=== PATIENT | male | born 1970 | race Caucasian/White ===

== ENCOUNTER 2018-01-04 07:19 | Inpatient (IN) | payer OTHER ==
[2018-01-04] MEDS ORDERED: Sodium Chloride 0.9% 1,000 ML IV ONE (07:27)
[2018-01-04 07:49] LABS: URINE SOURCE CLEAN C
[2018-01-04 07:49] LABS: % BASOPHILS 1.1 % (0.0-2.0); % EOSINOPHILS 2.7 % (0.0-5.0); % LYMPHOCYTES 32.7 % (20.0-50.0); % MONOCYTES 9.6 % (2.0-10.0); % NEUTROPHILS 53.9 % (40.0-80.0); BASOPHILE ABSOLUTE 0.1 Th/cumm (0-0.2); EOSINOPHILE ABSOLUTE 0.2 Th/cmm (0.1-0.4); HEMATOCRIT 47.7 % (41.0-60); HEMOGLOBIN 16.1 gm/dL (12-16); MEAN CORPUSCULAR HGB CONC 33.7 pg (28.0-36.0); MEAN PLATELET VOLUME 7.6 fl; MONOCYTE ABSOLUTE 0.6 Th/cmm (0.3-1.0); NEUTROPHILE ABSOLUTE 3.2 Th/cmm (1.8-8.0); PLATELET COUNT 267 Th/cmm (150-400); RED BLOOD COUNT 5.36 Mil/cmm (4.30-5.70); RED CELL DISTRIBUTION WIDTH 11.6 % (11.5-20.0); WHITE BLOOD COUNT 6.1 Th/cmm (4.8-10.8)
[2018-01-04 07:54] LABS: URINE BILIRUBIN NEGATIVE (NEGATIVE); URINE BLOOD LARGE (NEGATIVE); URINE GLUCOSE (UA) 100 mg/dL (NEGATIVE); URINE KETONE TRACE mg/dL (NEGATIVE); URINE LEUKOCYTE ESTERASE TRACE (NEGATIVE); URINE MICROSCOPIC INDICATED? YES; URINE NITRATE POSITIVE (NEGATIVE); URINE PH 6.5 (4.6 - 8.0); URINE PROTEIN >=300 mg/dL (NEGATIVE)
[2018-01-04 07:56] LABS: INR 0.93 (0.5-1.4); PROTHROMBIN TIME (TEST) 9.7 SECONDS (9.5-11.5)
--- NOTE | 2018-01-04 08:03 | Diagnostic Imaging Report ---
CT abdomen and pelvis without intravenous contrast Indication: Flank pain, hematuria Comparison: None, Technique: Axial images were obtained from the lung bases to the bilateral proximal femurs without IV contrast. Coronal reconstructions were made. total DLP: 928, CTDI15.2 FINDINGS: Hypoventilatory and atelectatic changes of the lung bases are noted. Assessment of the solid organs is limited due to lack of IV contrast. Subcentimeter low-density liver lesions are seen, too small to characterize, but suggestive of cysts. No focal splenic lesions. No focal pancreatic lesions. 3.8 cm left renal cyst is noted. There is a lobulated margin of the right kidney which is probably related to scarring. There is mild right hydronephrosis. Mild bilateral perinephric inflammatory changes are noted. There is a 3 to 4 mm stone of the distal right ureter. The urinary bladder is collapsed limiting its evaluation. Moderate to large fat-containing right inguinal hernia and moderate fat-containing left inguinal hernia is noted. No evidence of free fluid. No free air. Degenerative changes of the spine are noted. IMPRESSION: 3 to 4 mm stone of the right distal ureter causing mild right hydroureter and right hydronephrosis with mild surrounding inflammatory changes. Please correlate with clinical findings. Slight lobulation the right renal borders probably related to scarring. No discrete mass is identified ,however, exam was limited due to lack of IV contrast. A short-term follow-up CT with IV contrast or ultrasound is recommended for further assessment. Moderate to large fat-containing right and moderate size fat-containing left inguinal hernia.
[2018-01-04 08:06] LABS: ALB/GLOB RATIO 1.6 (1.0-1.8); ALBUMIN 4.7 gm/dL (4.2-5.5); ALKALINE PHOSPHATASE 38 U/L (34-104); AMYLASE SERUM 43 U/L (29-103); ANION GAP 14.5 (7.0-16.0); BILIRUBIN,TOTAL 0.8 mg/dL (0.3-1.0); BUN - UREA NITROGEN 19 mg/dL (7-25); CALCIUM SERUM 9.5 mg/dL (8.6-10.3); CARBON DIOXIDE 24.1 mEq/L (21.0-31.0); CHLORIDE 104 mEq/L (98-107); CHOLESTEROL 214 mg/dL (<200); CREATININE KINASE 129 U/L (30-223); GFR AFRICAN-AMERICAN > 60.0 ml/min (>90); GFR NON AFRICAN-AMERICAN > 60.0 ml/min; GLUCOSE 114 mg/dL (70-105); HDL -HIGH DENSITY LIPOPROTEIN 47 mg/dL (23-92); LIPASE 28 U/L (11-82); POTASSIUM SERUM 3.6 mEq/L (3.5-5.1); SGOT 17 U/L (13-39); SGPT/ALT 25 U/L (7-52); SODIUM SERUM 139 mEq/L (136-145); TOTAL PROTEIN,SERUM 7.6 gm/dL (6.0-8.3); TRIGLYCERIDES 127 mg/dL (<150)
[2018-01-04 08:23] LABS: URINE CLARITY HAZY (CLEAR); URINE COLOR BROWN
[2018-01-04 08:24] LABS: URINE BACTERIA FEW /hpf (NONE SEEN); URINE EPITHELIAL CELLS OCCASIONAL /lpf (FEW); URINE RBC 50-100 /hpf (0-5)
[2018-01-04] MEDS ORDERED: cefTRIAXone 1 GM in Sodium Chloride 0.9% 50 ML IV ONE (08:54)
--- NOTE | 2018-01-04 09:04 | ED Physician Chart ---
ED Chief Complaint/HPI - Patient Information Date Seen:: 01/04/18 Time Seen:: 07:30 Chief Complaint:: Flank Pain History of Present Illness:: onset x 6 hours of right flank pain, dysuria, and hematuria; pt denies H/As, neck pain, C/P, SOB, Abd. pain, A/N/V/D/C, fever, chills, or GI bleeding Allergies:: Allergies Allergy/AdvReac Type Severity Reaction Status Date / Time No Known Allergies Allergy Verified 01/04/18 07:28 Vitals:: Vital Signs - 8 hr 01/04/18 01/04/18 07:28 08:00 Temp 97.9 F 98 F HR 78 70 RR 23 18 BP 153/95 153/95 O2 Sat % 100 95 Historian:: Patient Review:: Nurse's Note Reviewed ED Review of Systems - Review of Systems General/Constitutional: No fever, No chills, No weight loss, No weakness, No diaphoresis, No edema, No loss of appetite Skin: No skin lesions, No rash, No bruising Head: No headache, No light-headedness Eyes: No loss of vision, No pain, No diplopia ENT: No earache, No nasal drainage, No sore throat, No tinnitus Neck: No neck pain, No swelling, No thyromegaly, No stiffness, No mass noted Cardio Vascular: No chest pain, No palpitations, No PND, No orthopnea, No edema Pulmonary: No SOB, No cough, No sputum, No wheezing GI: No nausea, No vomiting, No diarrhea, Pain, No melena, No hematochezia, No constipation, No hematemesis G/U: Dysuria, No frequency, Hematuria, No nacturia Musculoskeletal: No bone or joint pain, No back pain, No muscle pain Endocrine: No polyuria, No polydipsia Psychiatric: No prior psych history, No depression, No anxiety, No suicidal ideation, No homicidal ideation, No auditory hallucination, No visual hallucination Hematopoietic: No bruising, No lymphadenopathy Allergic/Immuno: No urticaria, No angioedema Neurological: No syncope, No focal symptoms, No weakness, No paresthesia, No headache, No seizure, No dizziness, No confusion, No vertigo ED Past Medical History - Past Medical History Obtainable: Yes Past Medical History: No significant medical hx Family History: None Social History: Non Smoker, No Alcohol, No Drug Use, Surgical History: None Psychiatricy History: None Medication: Reviewed Family Medical History - Family Member Mother History Unknown: Yes ED Physical Exam - Physical Examination General/Constitutional: Awake, Well-developed, well-nourished, Alert, No distress, GCS 15, Non-toxic appearing, Ambulatory Head: Atraumatic Eyes: Lids, conjuctiva normal, PERRL, EOMI Skin: Nl inspection, No rash, No skin lesions, No ecchymosis, Well hydrated, No lymphadenopathy ENMT: External ears, nose nl, TM canals nl, Nasal exam nl, Lips, teeth, gums nl , Oropharynx nl, Tonsils nl Neck: Nontender, Full ROM w/o pain, No JVD, No nuchal rigidity, No bruit, No mass, No stridor Respiratory: Nl effort/Exclusion, Clear to Auscultation, No Wheeze/Rhonchi/Rales Cardio Vascular: RRR, No murmur, gallop, rubs, NL S1 S2, Carotid/Femoral/Distal pulses equal bilaterally GI: No tenderness/rebounding/guarding, No organomegaly, No hernia, Normal BS's, Nondistended, No mass/bruits, No McBurney tenderness Other comments:: + Right CVAT Extremities: No tenderness or effusion, Full ROM, normal strength in all extremities, No edema, Normal digits & nails Neuro/Psych: Alert/oriented, DTR's symmetric, Normal sensory exam, Normal motor strength, Judgement/insight normal, Mood normal, Normal gait, No focal deficits Misc: Normal back, No paraspinal tenderness ED Labs/Radiology/EKG Results - Lab Results Results: Laboratory Tests 01/04/18 01/04/18 01/04/18 07:25 07:40 07:40 WBC 6.1 RBC 5.36 Hgb 16.1 Hct 47.7 MCV 89.0 MCH 30.0 MCHC Differential 33.7 RDW 11.6 Plt Count 267 MPV 7.6 Neutrophils % 53.9 Lymphocytes % 32.7 Monocytes % 9.6 Eosinophils % 2.7 Basophils % 1.1 PT 9.7 INR 0.93 Sodium Potassium Chloride Carbon Dioxide Anion Gap BUN Creatinine Est GFR ( Amer) Est GFR (Non-Af Amer) BUN/Creatinine Ratio Glucose Calcium Total Bilirubin AST ALT Alkaline Phosphatase Creatine Kinase Troponin I B-Natriuretic Peptide Total Protein Albumin Globulin Albumin/Globulin Ratio Triglycerides Cholesterol LDL Cholesterol Direct HDL Cholesterol Amylase Lipase Urine Source CLEAN C Urine Color BROWN Urine Clarity HAZY Urine pH 6.5 Ur Specific [place] >= 1.030 Urine Protein >=300 Urine Glucose (UA) 100 H Urine Ketones TRACE Urine Blood LARGE H Urine Nitrate POSITIVE H Urine Bilirubin NEGATIVE Urine Urobilinogen 2.0 Ur Leukocyte Esterase TRACE H Urine RBC 50-100 H Urine WBC 2-5 Ur Epithelial Cells OCCASIONAL Urine Bacteria FEW Ur Oval Fat Bodies 01/04/18 01/04/18 01/04/18 07:40 07:40 07:40 WBC RBC Hgb Hct MCV MCH MCHC Differential RDW Plt Count MPV Neutrophils % Lymphocytes % Monocytes % Eosinophils % Basophils % PT INR Sodium 139 Potassium 3.6 Chloride 104 Carbon Dioxide 24.1 Anion Gap 14.5 BUN 19 Creatinine 1.0 Est GFR ( Amer) > 60.0 Est GFR (Non-Af Amer) > 60.0 BUN/Creatinine Ratio 19.0 Glucose 114 H Calcium 9.5 Total Bilirubin 0.8 AST 17 ALT 25 Alkaline Phosphatase 38 Creatine Kinase 129 Troponin I 0.02 B-Natriuretic Peptide 18.5 Total Protein 7.6 Albumin 4.7 Globulin 2.9 Albumin/Globulin Ratio 1.6 Triglycerides 127 Cholesterol 214 H LDL Cholesterol Direct 137 HDL Cholesterol 47 Amylase 43 Lipase 28 Urine Source Urine Color Urine Clarity Urine pH Ur Specific [place] Urine Protein Urine Glucose (UA) Urine Ketones Urine Blood Urine Nitrate Urine Bilirubin Urine Urobilinogen Ur Leukocyte Esterase Urine RBC Urine WBC Ur Epithelial Cells Urine Bacteria Ur Oval Fat Bodies Comments:: Reviewed - Radiology Results Comments:: + Right Distal Ureter Calculus - EKG Interpretations EKG Time:: 07:31 Rate & Rhythm: 70; NSR Comments:: RVH; non-specific st-t changes ED Septic Shock - . Is Septic Shock (SBP<90, OR Lactate>4 mmol\L) present?: No - <6hrs of presentation: Vital Signs: Vital Signs - 8 hr 01/04/18 01/04/18 07:28 08:00 Temp 97.9 F 98 F HR 78 70 RR 23 18 BP 153/95 153/95 O2 Sat % 100 95 ED Reassessment (Disposition) - Reassessment Reassessment Condition:: Improved - Diagnosis Diagnosis:: Hematuria; UTI; Flank Pain; Back Pain; Ureterolithiasis - Aftercare/Follow up Instructions Aftercare/Follow-Up Instructions:: Counseled pt regarding lab results/diagnosis & need follow up, Counseled pt & family regarding lab results/diagnosis & need follow up - Patient Disposition Discharge/Transfer:: Acute Care w/in this hosp Accepting Physician:: Dr. Pavon Time Called:: 844 Time Responded:: 08:45 Admitted to:: Med/Surg Spoke to:: Dr. Pavon Admitting Medical Physician:: Dr. Pavon Condition at Disposition:: Stable, Improved
[2018-01-04] MEDS ORDERED: Morphine Sulfate 2 mg/mL 1mL Syr IV STA (09:11)
[2018-01-04] MEDS ORDERED: 0.45% NS w/20 mEq KCl 1,000 ML IV ONE (09:23)
[2018-01-04] MEDS ORDERED: Morphine Sulfate 2 mg/mL 1mL Syr ONE (09:23)
[2018-01-04] MEDS ORDERED: HYDROmorphone 2 mg/mL 1mL Vial IVP PRN (09:37)
--- NOTE | 2018-01-04 09:41 | Diagnostic Imaging Report ---
Portable chest x-ray HISTORY: Pain There is a poor inspiration. The heart size appears normal. A linear density is noted in the left base probably related to scarring. No other focal processes. IMPRESSION: 1. Linear density within the left lung base probably related to scarring 2. Cardiomegaly
[2018-01-04] MEDS ORDERED: Morphine Sulfate 2 mg/mL 1mL Syr IVP PRN (13:22)
[2018-01-04] MEDS ORDERED: Albuterol Nebulizer 2.5mg/3mL HHN PRN (13:23)
[2018-01-04] MEDS: Hydrocodone/APAP 5mg/325mg Tab PO PRN (13:35)
--- NOTE | 2018-01-04 15:02 | Internal Medicine Prog Note ---
Internal Medicine Subjective - Subjective Service Date: 01/04/18 ([id number] [facility] ) Internal Medicine Objective - Results Result Diagrams: 01/04/18 07:40 01/04/18 07:40 Recent Labs: Laboratory Last Values WBC 6.1 Th/cmm (4.8-10.8) 01/04/18 07:40 RBC 5.36 Mil/cmm (4.30-5.70) 01/04/18 07:40 Hgb 16.1 gm/dL (12-16) 01/04/18 07:40 Hct 47.7 % (41.0-60) 01/04/18 07:40 MCV 89.0 fl (80-99) 01/04/18 07:40 MCH 30.0 pg (26.0-30.0) 01/04/18 07:40 MCHC Differential 33.7 pg (28.0-36.0) 01/04/18 07:40 RDW 11.6 % (11.5-20.0) 01/04/18 07:40 Plt Count 267 Th/cmm (150-400) 01/04/18 07:40 MPV 7.6 fl 01/04/18 07:40 Neutrophils % 53.9 % (40.0-80.0) 01/04/18 07:40 Lymphocytes % 32.7 % (20.0-50.0) 01/04/18 07:40 Monocytes % 9.6 % (2.0-10.0) 01/04/18 07:40 Eosinophils % 2.7 % (0.0-5.0) 01/04/18 07:40 Basophils % 1.1 % (0.0-2.0) 01/04/18 07:40 PT 9.7 SECONDS (9.5-11.5) 01/04/18 07:40 INR 0.93 (0.5-1.4) 01/04/18 07:40 Sodium 139 mEq/L (136-145) 01/04/18 07:40 Potassium 3.6 mEq/L (3.5-5.1) 01/04/18 07:40 Chloride 104 mEq/L (98-107) 01/04/18 07:40 Carbon Dioxide 24.1 mEq/L (21.0-31.0) 01/04/18 07:40 Anion Gap 14.5 (7.0-16.0) 01/04/18 07:40 BUN 19 mg/dL (7-25) 01/04/18 07:40 Creatinine 1.0 mg/dL (0.7-1.3) 01/04/18 07:40 Est GFR ( Amer) > 60.0 ml/min (>90) 01/04/18 07:40 Est GFR (Non-Af Amer) > 60.0 ml/min 01/04/18 07:40 BUN/Creatinine Ratio 19.0 01/04/18 07:40 Glucose 114 mg/dL (70-105) H 01/04/18 07:40 Calcium 9.5 mg/dL (8.6-10.3) 01/04/18 07:40 Total Bilirubin 0.8 mg/dL (0.3-1.0) 01/04/18 07:40 AST 17 U/L (13-39) 01/04/18 07:40 ALT 25 U/L (7-52) 01/04/18 07:40 Alkaline Phosphatase 38 U/L (34-104) 01/04/18 07:40 Creatine Kinase 129 U/L (30-223) 01/04/18 07:40 Troponin I 0.02 ng/mL (0.01-0.05) 01/04/18 07:40 B-Natriuretic Peptide 18.5 pg/mL (5.0-100.0) 01/04/18 07:40 Total Protein 7.6 gm/dL (6.0-8.3) 01/04/18 07:40 Albumin 4.7 gm/dL (4.2-5.5) 01/04/18 07:40 Globulin 2.9 gm/dL 01/04/18 07:40 Albumin/Globulin Ratio 1.6 (1.0-1.8) 01/04/18 07:40 Triglycerides 127 mg/dL (<150) 01/04/18 07:40 Cholesterol 214 mg/dL (<200) H 01/04/18 07:40 LDL Cholesterol Direct 137 mg/dL (75-193) 01/04/18 07:40 HDL Cholesterol 47 mg/dL (23-92) 01/04/18 07:40 Amylase 43 U/L (29-103) 01/04/18 07:40 Lipase 28 U/L (11-82) 01/04/18 07:40 Urine Source CLEAN C 01/04/18 07:25 Urine Color BROWN 01/04/18 07:25 Urine Clarity HAZY (CLEAR) 01/04/18 07:25 Urine pH 6.5 (4.6 - 8.0) 01/04/18 07:25 Ur Specific [place] >= 1.030 (1.005-1.030) 01/04/18 07:25 Urine Protein >=300 mg/dL (NEGATIVE) 01/04/18 07:25 Urine Glucose (UA) 100 mg/dL (NEGATIVE) H 01/04/18 07:25 Urine Ketones TRACE mg/dL (NEGATIVE) 01/04/18 07:25 Urine Blood LARGE (NEGATIVE) H 01/04/18 07:25 Urine Nitrate POSITIVE (NEGATIVE) H 01/04/18 07:25 Urine Bilirubin NEGATIVE (NEGATIVE) 01/04/18 07:25 Urine Urobilinogen 2.0 E.U./dL (0.2 - 1.0) 01/04/18 07:25 Ur Leukocyte Esterase TRACE (NEGATIVE) H 01/04/18 07:25 Urine RBC 50-100 /hpf (0-5) H 01/04/18 07:25 Urine WBC 2-5 /hpf (0-5) 01/04/18 07:25 Ur Epithelial Cells OCCASIONAL /lpf (FEW) 01/04/18 07:25 Urine Bacteria FEW /hpf (NONE SEEN) 01/04/18 07:25 Ur Oval Fat Bodies /hpf (NONE SEEN) 01/04/18 07:25 - Physical Exam Vitals and I&O: Vital Signs Temp 97.6 F 01/04/18 12:00 Pulse 73 01/04/18 12:00 Resp 12 01/04/18 12:00 BP 157/97 01/04/18 12:00 Pulse Ox 98 01/04/18 12:00 Intake & Output 01/03/18 01/04/18 01/04/18 18:59 06:59 18:59 Weight (lbs) 298 lb Other: Weight Source Patient stated Active Medications: Current Medications Acetaminophen (Tylenol) 650 mg PO Q4H PRN PRN Reason: Breakthru Pain/Fever above 101 Stop: 03/05/18 13:22 Acetaminophen/Hydrocodone Bitart ([place] 5mg/325mg) 1 tab PO Q4H PRN PRN Reason: Pain (Mild) Stop: 03/05/18 13:22 Last Admin: 01/04/18 13:35 Dose: 1 tab Albuterol Sulfate (Albuterol 2.5mg/3ml Neb Ud) 2.5 mg HHN Q2HRT PRN PRN Reason: Shortness of Breath or Wheeze Stop: 03/05/18 13:22 Furosemide (Lasix) 20 mg PO DAILY [facility] Stop: 03/05/18 15:59 Hydromorphone HCl (Dilaudid) 1 mg IVP Q4H PRN PRN Reason: Pain (Severe) Stop: 03/05/18 09:44 Sodium Chloride (Nacl 0.9%) 1,000 mls @ 100 mls/hr IV .Q10H ONE Stop: 01/04/18 17:26 Last Admin: 01/04/18 08:02 Dose: 100 mls/hr Potassium Chloride 10 meq/ (Sodium Chloride) 1,005 mls @ 175 mls/hr IV .Q5H45M [facility] Stop: 03/05/18 09:29 Last Admin: 01/04/18 10:07 Dose: 175 mls/hr Ceftriaxone Sodium 1 gm/ (Sodium Chloride) 50 mls @ 100 mls/hr IV Q24HR [facility] Stop: 03/06/18 08:59 Ondansetron HCl (Zofran) 4 mg IV Q4H PRN PRN Reason: Nausea / Vomiting Stop: 03/05/18 09:44 Last Admin: 01/04/18 11:21 Dose: 4 mg Ondansetron HCl (Zofran) 4 mg IV Q8H PRN PRN Reason: Nausea / Vomiting Stop: 03/05/18 13:22 Tamsulosin HCl (Flomax) 0.4 mg PO DAILY [facility] Stop: 03/05/18 09:29 Last Admin: 01/04/18 10:04 Dose: 0.4 mg
[2018-01-04] MEDS: HYDROmorphone 2 mg/mL 1mL Vial IVP PRN ×2 (16:08→21:15)
--- NOTE | 2018-01-04 16:34 | History & Physical ---
ADMIT DATE: 01/04/2018 CHIEF COMPLAINT: Right-sided flank pain. HISTORY OF PRESENT ILLNESS: This is a 47-year-old male who has a 1-day history of right flank pain. According to the patient, he has been having right flank pain intermittently for about a week. The patient states that couple days ago, the patient started to have intermittent right flank pain associated with uncomfortable sensation when urinating. The patient denies any fevers at home. The patient states that the pain was worse yesterday. He describes the pain as on the right flank side radiating to the lower back. For further management, the patient is now admitted here to the med/surg unit. PAST MEDICAL HISTORY: None per patient. FAMILY HISTORY: Noncontributory. SOCIAL HISTORY: The patient is a social drinker. Denies any illicit drug usage. The patient is . SURGICAL HISTORY: None per patient. MEDICATIONS: None. REVIEW OF SYSTEMS: GENERAL: Denies any fevers or chills. CARDIOVASCULAR: Denies chest pain. RESPIRATORY: Denies shortness of breath. GASTROINTESTINAL: Denies nausea, vomiting, abdominal pain. GENITOURINARY: The patient currently has a Ugarte catheter in place. All other systems are reviewed and negative. PHYSICAL EXAMINATION: GENERAL: The patient is well developed, well nourished, in no apparent distress. VITAL SIGNS: Temperature 96.6, heart rate 73, blood pressure 157/97, respirations 12, O2 98%. HEENT: Head normocephalic, atraumatic. NECK: Supple. No mass. LUNGS: Clear bilaterally. HEART: Regular rate and rhythm. ABDOMEN: Soft, nontender, nondistended. EXTREMITIES: No trace of edema noted. LABORATORY DATA: WBC 6.1, H and H 16.1 and 47.7, platelet of 267. Sodium 139, potassium 3.6, chloride 104, BUN 19, and creatinine 1.0. The patient had a urinalysis done, positive for UTI. DIAGNOSTICS: The patient had a CT of the abdomen and pelvis done, impression is 3-4 mm stone of the right distal ureter causing mild hydroureter and right hydronephrosis, mild surrounding inflammatory changes, slight lobulation of the right renal borders probably related to scarring. No discrete mass is identified. [id number] fat containing right and moderate sized fat containing left inguinal hernia. Chest x-ray was also obtained, impression is linear density within the left lung base, probably related to scarring and cardiomegaly. ASSESSMENT: Acute urinary tract infection with renal stone, right flank pain secondary to above. PLAN: We will get Urology consultation, aggressive IV fluids for hydration. The patient will be given as ordered by urologist, Lasix 20 mg p.o. daily. Urine strainer to be used. We will continue to monitor this patient. JOB# [id number]
[2018-01-04] MEDS: Sodium Chloride 0.9% 1,000 ML IV SCH (18:51)
[2018-01-04 19:40] VITALS: BP 152/71
[2018-01-05] MEDS: Sodium Chloride 0.9% 1,000 ML IV SCH ×2 (05:02→21:48)
[2018-01-05 06:16] LABS: % BASOPHILS 0.3 % (0.0-2.0); % EOSINOPHILS 1.4 % (0.0-5.0); % LYMPHOCYTES 22.2 % (20.0-50.0); % MONOCYTES 10.9 % (2.0-10.0); % NEUTROPHILS 65.2 % (40.0-80.0); EOSINOPHILE ABSOLUTE 0.1 Th/cmm (0.1-0.4); HEMATOCRIT 42.9 % (41.0-60); HEMOGLOBIN 14.9 gm/dL (12-16); LYMPHOCYTE ABSOLUTE 2.1 Th/cmm (1.5-3.0); MEAN CELL VOLUME 89.9 fl (80-99); MEAN CORPUSCULAR HEMOGLOBIN 31.1 pg (26.0-30.0); MEAN CORPUSCULAR HGB CONC 34.6 pg (28.0-36.0); MEAN PLATELET VOLUME 8.4 fl; NEUTROPHILE ABSOLUTE 6.1 Th/cmm (1.8-8.0); PLATELET COUNT 240 Th/cmm (150-400); RED BLOOD COUNT 4.77 Mil/cmm (4.30-5.70); RED CELL DISTRIBUTION WIDTH 11.9 % (11.5-20.0); WHITE BLOOD COUNT 9.3 Th/cmm (4.8-10.8)
[2018-01-05 06:33] LABS: ALB/GLOB RATIO 1.6 (1.0-1.8); ALBUMIN 4.1 gm/dL (4.2-5.5); ALKALINE PHOSPHATASE 35 U/L (34-104); ANION GAP 14.9 (7.0-16.0); BILIRUBIN,TOTAL 0.8 mg/dL (0.3-1.0); BUN - UREA NITROGEN 19 mg/dL (7-25); CALCIUM SERUM 8.7 mg/dL (8.6-10.3); CARBON DIOXIDE 24.1 mEq/L (21.0-31.0); CHLORIDE 104 mEq/L (98-107); CREATININE - SERUM 1.5 mg/dL (0.7-1.3); GFR AFRICAN-AMERICAN > 60.0 ml/min (>90); GFR NON AFRICAN-AMERICAN 52.9 ml/min; GLUCOSE 108 mg/dL (70-105); SGOT 16 U/L (13-39); SGPT/ALT 19 U/L (7-52); SODIUM SERUM 139 mEq/L (136-145); TOTAL PROTEIN,SERUM 6.7 gm/dL (6.0-8.3)
[2018-01-05] MEDS ORDERED: Influenza Vaccine (5 yr & older) 0.5 ml Syr IM ONE (09:00)
[2018-01-05] MEDS ORDERED: HYDROmorphone 1 mg/mL 1mL Syr IVP PRN (09:30)
[2018-01-05] MEDS: cefTRIAXone 1 GM in Sodium Chloride 0.9% 50 ML IV SCH (10:08)
--- NOTE | 2018-01-05 14:24 | Internal Medicine Prog Note ---
Internal Medicine Subjective - Subjective Service Date: 01/05/18 Patient seen and examined:: with staff Patient is:: awake, verbal Per staff patient has:: tolerating meds Internal Medicine Objective - Results Result Diagrams: 01/05/18 05:30 01/05/18 05:30 Recent Labs: Laboratory Last Values WBC 9.3 Th/cmm (4.8-10.8) 01/05/18 05:30 RBC 4.77 Mil/cmm (4.30-5.70) 01/05/18 05:30 Hgb 14.9 gm/dL (12-16) 01/05/18 05:30 Hct 42.9 % (41.0-60) 01/05/18 05:30 MCV 89.9 fl (80-99) 01/05/18 05:30 MCH 31.1 pg (26.0-30.0) H 01/05/18 05:30 MCHC Differential 34.6 pg (28.0-36.0) 01/05/18 05:30 RDW 11.9 % (11.5-20.0) 01/05/18 05:30 Plt Count 240 Th/cmm (150-400) 01/05/18 05:30 MPV 8.4 fl 01/05/18 05:30 Neutrophils % 65.2 % (40.0-80.0) 01/05/18 05:30 Lymphocytes % 22.2 % (20.0-50.0) 01/05/18 05:30 Monocytes % 10.9 % (2.0-10.0) H 01/05/18 05:30 Eosinophils % 1.4 % (0.0-5.0) 01/05/18 05:30 Basophils % 0.3 % (0.0-2.0) 01/05/18 05:30 PT 9.7 SECONDS (9.5-11.5) 01/04/18 07:40 INR 0.93 (0.5-1.4) 01/04/18 07:40 Sodium 139 mEq/L (136-145) 01/05/18 05:30 Potassium 4.0 mEq/L (3.5-5.1) 01/05/18 05:30 Chloride 104 mEq/L (98-107) 01/05/18 05:30 Carbon Dioxide 24.1 mEq/L (21.0-31.0) 01/05/18 05:30 Anion Gap 14.9 (7.0-16.0) 01/05/18 05:30 BUN 19 mg/dL (7-25) 01/05/18 05:30 Creatinine 1.5 mg/dL (0.7-1.3) H 01/05/18 05:30 Est GFR ( Amer) > 60.0 ml/min (>90) 01/05/18 05:30 Est GFR (Non-Af Amer) 52.9 ml/min 01/05/18 05:30 BUN/Creatinine Ratio 12.7 01/05/18 05:30 Glucose 108 mg/dL (70-105) H 01/05/18 05:30 Calcium 8.7 mg/dL (8.6-10.3) 01/05/18 05:30 Total Bilirubin 0.8 mg/dL (0.3-1.0) 01/05/18 05:30 AST 16 U/L (13-39) 01/05/18 05:30 ALT 19 U/L (7-52) 01/05/18 05:30 Alkaline Phosphatase 35 U/L (34-104) 01/05/18 05:30 Creatine Kinase 129 U/L (30-223) 01/04/18 07:40 Troponin I 0.02 ng/mL (0.01-0.05) 01/04/18 07:40 B-Natriuretic Peptide 18.5 pg/mL (5.0-100.0) 01/04/18 07:40 Total Protein 6.7 gm/dL (6.0-8.3) 01/05/18 05:30 Albumin 4.1 gm/dL (4.2-5.5) L 01/05/18 05:30 Globulin 2.6 gm/dL 01/05/18 05:30 Albumin/Globulin Ratio 1.6 (1.0-1.8) 01/05/18 05:30 Triglycerides 127 mg/dL (<150) 01/04/18 07:40 Cholesterol 214 mg/dL (<200) H 01/04/18 07:40 LDL Cholesterol Direct 137 mg/dL (75-193) 01/04/18 07:40 HDL Cholesterol 47 mg/dL (23-92) 01/04/18 07:40 Amylase 43 U/L (29-103) 01/04/18 07:40 Lipase 28 U/L (11-82) 01/04/18 07:40 Urine Source CLEAN C 01/04/18 07:25 Urine Color BROWN 01/04/18 07:25 Urine Clarity HAZY (CLEAR) 01/04/18 07:25 Urine pH 6.5 (4.6 - 8.0) 01/04/18 07:25 Ur Specific [place] >= 1.030 (1.005-1.030) 01/04/18 07:25 Urine Protein >=300 mg/dL (NEGATIVE) 01/04/18 07:25 Urine Glucose (UA) 100 mg/dL (NEGATIVE) H 01/04/18 07:25 Urine Ketones TRACE mg/dL (NEGATIVE) 01/04/18 07:25 Urine Blood LARGE (NEGATIVE) H 01/04/18 07:25 Urine Nitrate POSITIVE (NEGATIVE) H 01/04/18 07:25 Urine Bilirubin NEGATIVE (NEGATIVE) 01/04/18 07:25 Urine Urobilinogen 2.0 E.U./dL (0.2 - 1.0) 01/04/18 07:25 Ur Leukocyte Esterase TRACE (NEGATIVE) H 01/04/18 07:25 Urine RBC 50-100 /hpf (0-5) H 01/04/18 07:25 Urine WBC 2-5 /hpf (0-5) 01/04/18 07:25 Ur Epithelial Cells OCCASIONAL /lpf (FEW) 01/04/18 07:25 Urine Bacteria FEW /hpf (NONE SEEN) 01/04/18 07:25 Ur Oval Fat Bodies /hpf (NONE SEEN) 01/04/18 07:25 - Physical Exam Vitals and I&O: Vital Signs Temp 98.3 F 01/05/18 14:20 Pulse 69 01/05/18 14:20 Resp 18 01/05/18 14:20 BP 126/84 01/05/18 14:20 Pulse Ox 98 01/05/18 14:20 Intake & Output 01/04/18 01/05/18 01/05/18 18:59 06:59 18:59 Intake Total 1005 1000 Output Total 1200 Balance 1005 1000 -1200 Weight (lbs) 298 lb 300 lb 300 lb Intake: Intake, IV Amount 1005 1000 Potassium Chloride 10 meq 1005 In Sodium Chloride 0.45% 1,000 ml @ 175 mls/hr IV .Q5H45M [facility] Rx#: [id number] Sodium Chloride 0.9% 1, 1000 000 ml @ 100 mls/hr IV . Q10H [facility] Rx#:[id number] Output: Urine 1200 Other: Weight Source Patient stated Bedscale Bedscale Active Medications: Current Medications Acetaminophen (Tylenol) 650 mg PO Q4H PRN PRN Reason: Breakthru Pain/Fever above 101 Stop: 03/05/18 13:22 Last Admin: 01/05/18 10:08 Dose: 650 mg Acetaminophen/Hydrocodone Bitart ([place] 5mg/325mg) 1 tab PO Q4H PRN PRN Reason: Pain (Mild) Stop: 03/05/18 13:22 Last Admin: 01/04/18 13:35 Dose: 1 tab Albuterol Sulfate (Albuterol 2.5mg/3ml Neb Ud) 2.5 mg HHN Q2HRT PRN PRN Reason: Shortness of Breath or Wheeze Stop: 03/05/18 13:22 Furosemide (Lasix) 20 mg PO DAILY [facility] Stop: 03/05/18 15:59 Last Admin: 01/05/18 09:52 Dose: 20 mg Hydromorphone HCl (Dilaudid) 1 mg IVP Q4H PRN PRN Reason: Pain (Severe) Stop: 03/05/18 09:44 Potassium Chloride 10 meq/ (Sodium Chloride) 1,005 mls @ 175 mls/hr IV .Q5H45M [facility] Stop: 03/05/18 09:29 Last Admin: 01/05/18 09:52 Dose: 175 mls/hr Ceftriaxone Sodium 1 gm/ (Sodium Chloride) 50 mls @ 100 mls/hr IV Q24HR [facility] Stop: 03/06/18 08:59 Last Admin: 01/05/18 10:08 Dose: 100 mls/hr Sodium Chloride (Nacl 0.9%) 1,000 mls @ 100 mls/hr IV .Q10H [facility] Stop: 03/05/18 18:59 Last Admin: 01/05/18 05:02 Dose: 100 mls/hr Ondansetron HCl (Zofran) 4 mg IV Q8H PRN PRN Reason: Nausea / Vomiting Stop: 03/05/18 13:22 Tamsulosin HCl (Flomax) 0.4 mg PO DAILY [facility] Stop: 03/05/18 09:29 Last Admin: 01/05/18 09:52 Dose: 0.4 mg General: alert HEENT: NC/AT, PERRLA Neck: Supple Lungs: CTAB Internal Medicine Assmt/Plan - Assessment Assessment: acute uti with renal stone right flank pain-better - Plan Plan: encourage patient to ambulate cont with ivf dc planning in am repeat renal u/s today
--- NOTE | 2018-01-05 14:58 | Consultation ---
DATE OF CONSULTATION: 01/05/2018 REASON FOR CONSULTATION: The patient was seen for stone and abdominal pain. HISTORY OF PRESENT ILLNESS: This is a 47-year-old who came into the Emergency Room with 6-hour history of right flank and low back pain, some dysuria and mild hematuria. No nausea, vomiting, fever, or chills. No previous episodes. No history of stone disease in himself or family. No urologic surgery. No history of infections in the urinary tract. PAST SURGICAL HISTORY: Negative. MEDICAL HISTORY: Negative. ALLERGIES: None. REVIEW OF SYSTEMS: No fever or chills. Denied headache or seizures. No weight loss. Denied chest pain, coughing or shortness of breath. No sore throat or vision loss. Urologic: Some dysuria and hematuria. Both have improved. Unfortunately, a Ugarte was placed, which will be removed now. No skin or joint problems. HOME MEDICATIONS: None. PHYSICAL EXAMINATION: GENERAL: He is awake, alert, oriented, in mild distress. BMI of 36.5. He is moderately obese. VITAL SIGNS: Temperature 98.2, heart rate 66, blood pressure 122/79. No fever recorded in the hospital. HEAD AND NECK: Normocephalic. Trachea central. Pupils equal and reactive. No jaundice. Thyroid and lymph nodes are not palpable. Carotid bruit absent. CHEST: Symmetrical. LUNGS: Clear. No rales or rhonchi. HEART: Sounds normal, in sinus rhythm, no murmur. ABDOMEN: Soft, nontender, no organomegaly, mass, or hernia. Right flank tender to percussion. GENITALIA: Normal male, no scrotal masses. Meatus adequate. RECTAL: Sphincter tone normal. Prostate 10 grams or less, benign, nontender. EXTREMITIES: No edema or lymphadenopathy. NEUROLOGIC: Nonfocal. Moves all 4 limbs. LABORATORY DATA: White count 9.3, yesterday was 6.1 and hemoglobin 14.9, platelets normal. Electrolytes normal. BUN 19, creatinine 1.5 up from 1.0 yesterday. Sugar 108 and 114 over the last 2 days. Urine showed nitrites and blood, red cells, but no significant white cells. CT scan of the abdomen and pelvis showed a 4 mm stone in the right distal ureter causing mild hydroureter and hydronephrosis with perinephric inflammation. IMPRESSION: Right ureteral stone, hopefully will pass with hydration, expulsive therapy and ambulation. He is straining the urine and will try to comply with the recommendations. PLAN: We discussed the treatment options from here on that includes passage of the stone spontaneously which would be the best. If that fails and the pain goes away, he may be able to go home for a week to two weeks and try to pass the stone spontaneously at home with the same treatment. If he wants to have a definitive outcome, then a ureteroscopy with laser and stent would be the other option along with the possible risks of injury to the ureter, need for nephrostomy, possible need for a stent infection, etc. He understands and agrees with the plan. His was in the room and agrees as well. [facility]# [id number]
[2018-01-05] MEDS: Hydrocodone/APAP 5mg/325mg Tab PO PRN (21:49)
[2018-01-06 06:12] LABS: % BASOPHILS 0.1 % (0.0-2.0); % EOSINOPHILS 2.5 % (0.0-5.0); % LYMPHOCYTES 19.7 % (20.0-50.0); % MONOCYTES 11.4 % (2.0-10.0); % NEUTROPHILS 66.3 % (40.0-80.0); EOSINOPHILE ABSOLUTE 0.2 Th/cmm (0.1-0.4); HEMOGLOBIN 12.7 gm/dL (12-16); LYMPHOCYTE ABSOLUTE 1.4 Th/cmm (1.5-3.0); MEAN CELL VOLUME 89.6 fl (80-99); MEAN CORPUSCULAR HEMOGLOBIN 30.6 pg (26.0-30.0); MEAN CORPUSCULAR HGB CONC 34.1 pg (28.0-36.0); MEAN PLATELET VOLUME 8.2 fl; MONOCYTE ABSOLUTE 0.8 Th/cmm (0.3-1.0); NEUTROPHILE ABSOLUTE 4.8 Th/cmm (1.8-8.0); PLATELET COUNT 193 Th/cmm (150-400); RED BLOOD COUNT 4.16 Mil/cmm (4.30-5.70); RED CELL DISTRIBUTION WIDTH 11.4 % (11.5-20.0); WHITE BLOOD COUNT 7.2 Th/cmm (4.8-10.8)
[2018-01-06 06:20] LABS: HEMATOCRIT 37.3 % (41.0-60)
[2018-01-06 06:26] LABS: ALB/GLOB RATIO 1.6 (1.0-1.8); ALBUMIN 3.7 gm/dL (4.2-5.5); ALKALINE PHOSPHATASE 29 U/L (34-104); ANION GAP 10.3 (7.0-16.0); BILIRUBIN,TOTAL 0.8 mg/dL (0.3-1.0); BUN - UREA NITROGEN 16 mg/dL (7-25); CALCIUM SERUM 8.4 mg/dL (8.6-10.3); CARBON DIOXIDE 23.5 mEq/L (21.0-31.0); CHLORIDE 106 mEq/L (98-107); CREATININE - SERUM 1.3 mg/dL (0.7-1.3); GFR AFRICAN-AMERICAN > 60.0 ml/min (>90); GFR NON AFRICAN-AMERICAN > 60.0 ml/min; GLUCOSE 106 mg/dL (70-105); POTASSIUM SERUM 3.8 mEq/L (3.5-5.1); SGOT 13 U/L (13-39); SGPT/ALT 18 U/L (7-52); SODIUM SERUM 136 mEq/L (136-145)
--- NOTE | 2018-01-06 08:01 | Diagnostic Imaging Report ---
Renal ultrasound HISTORY: Renal stones. COMPARISON: CT abdomen and pelvis on 01/04/2018. Technique: Sonography of the kidneys and urinary bladder was performed in multiple planes. FINDINGS: The right kidney measures 13.2 x 6.8 x 6.7 cm. There is a lobulated area within the right mid kidney probably representing a prominent column of Rob as no mass was identified on recent ultrasound. No hydronephrosis. The left kidney measures 14.0 x 7.0 cm. There is a left renal cyst at the superior pole measuring 4.1 x 4.1 cm. No hydronephrosis. The prevoid bladder volume is 178-mL. The postvoid bladder volume is 7 mL's. The urinary bladder wall measures 5 mm. IMPRESSION: No evidence of hydronephrosis. Please refer to recent CT examination on 01/04/2018 for further findings of distal right ureteral stone not visualized sonographically. Mild increased size of the kidneys. Heterogeneous area along the right mid kidney, probably a prominent column of Rob as no mass is identified recent CT examination. Short-term follow-up CT with IV contrast would provide additional detail and assessment. Left renal cyst. Mild urinary bladder wall thickening. Inflammatory process cannot be excluded.
[2018-01-06] MEDS: cefTRIAXone 1 GM in Sodium Chloride 0.9% 50 ML IV SCH (08:47)
[2018-01-06] MEDS: Sodium Chloride 0.9% 1,000 ML IV SCH (08:49)
--- NOTE | 2018-01-06 11:24 | Internal Medicine Prog Note ---
Internal Medicine Subjective - Subjective Service Date: 01/06/18 (dc summary [id number]) Patient is:: awake, verbal Per staff patient has:: tolerating meds Internal Medicine Objective - Results Result Diagrams: 01/06/18 05:30 01/06/18 05:30 Recent Labs: Laboratory Last Values WBC 7.2 Th/cmm (4.8-10.8) 01/06/18 05:30 RBC 4.16 Mil/cmm (4.30-5.70) L 01/06/18 05:30 Hgb 12.7 gm/dL (12-16) 01/06/18 05:30 Hct 37.3 % (41.0-60) L D 01/06/18 05:30 MCV 89.6 fl (80-99) 01/06/18 05:30 MCH 30.6 pg (26.0-30.0) H 01/06/18 05:30 MCHC Differential 34.1 pg (28.0-36.0) 01/06/18 05:30 RDW 11.4 % (11.5-20.0) L 01/06/18 05:30 Plt Count 193 Th/cmm (150-400) 01/06/18 05:30 MPV 8.2 fl 01/06/18 05:30 Neutrophils % 66.3 % (40.0-80.0) 01/06/18 05:30 Lymphocytes % 19.7 % (20.0-50.0) L 01/06/18 05:30 Monocytes % 11.4 % (2.0-10.0) H 01/06/18 05:30 Eosinophils % 2.5 % (0.0-5.0) 01/06/18 05:30 Basophils % 0.1 % (0.0-2.0) 01/06/18 05:30 PT 9.7 SECONDS (9.5-11.5) 01/04/18 07:40 INR 0.93 (0.5-1.4) 01/04/18 07:40 Sodium 136 mEq/L (136-145) 01/06/18 05:30 Potassium 3.8 mEq/L (3.5-5.1) 01/06/18 05:30 Chloride 106 mEq/L (98-107) 01/06/18 05:30 Carbon Dioxide 23.5 mEq/L (21.0-31.0) 01/06/18 05:30 Anion Gap 10.3 (7.0-16.0) 01/06/18 05:30 BUN 16 mg/dL (7-25) 01/06/18 05:30 Creatinine 1.3 mg/dL (0.7-1.3) 01/06/18 05:30 Est GFR ( Amer) > 60.0 ml/min (>90) 01/06/18 05:30 Est GFR (Non-Af Amer) > 60.0 ml/min 01/06/18 05:30 BUN/Creatinine Ratio 12.3 01/06/18 05:30 Glucose 106 mg/dL (70-105) H 01/06/18 05:30 Calcium 8.4 mg/dL (8.6-10.3) L 01/06/18 05:30 Total Bilirubin 0.8 mg/dL (0.3-1.0) 01/06/18 05:30 AST 13 U/L (13-39) 01/06/18 05:30 ALT 18 U/L (7-52) 01/06/18 05:30 Alkaline Phosphatase 29 U/L (34-104) L 01/06/18 05:30 Creatine Kinase 129 U/L (30-223) 01/04/18 07:40 Troponin I 0.02 ng/mL (0.01-0.05) 01/04/18 07:40 B-Natriuretic Peptide 18.5 pg/mL (5.0-100.0) 01/04/18 07:40 Total Protein 6.0 gm/dL (6.0-8.3) 01/06/18 05:30 Albumin 3.7 gm/dL (4.2-5.5) L 01/06/18 05:30 Globulin 2.3 gm/dL 01/06/18 05:30 Albumin/Globulin Ratio 1.6 (1.0-1.8) 01/06/18 05:30 Triglycerides 127 mg/dL (<150) 01/04/18 07:40 Cholesterol 214 mg/dL (<200) H 01/04/18 07:40 LDL Cholesterol Direct 137 mg/dL (75-193) 01/04/18 07:40 HDL Cholesterol 47 mg/dL (23-92) 01/04/18 07:40 Amylase 43 U/L (29-103) 01/04/18 07:40 Lipase 28 U/L (11-82) 01/04/18 07:40 Urine Source CLEAN C 01/04/18 07:25 Urine Color BROWN 01/04/18 07:25 Urine Clarity HAZY (CLEAR) 01/04/18 07:25 Urine pH 6.5 (4.6 - 8.0) 01/04/18 07:25 Ur Specific [place] >= 1.030 (1.005-1.030) 01/04/18 07:25 Urine Protein >=300 mg/dL (NEGATIVE) 01/04/18 07:25 Urine Glucose (UA) 100 mg/dL (NEGATIVE) H 01/04/18 07:25 Urine Ketones TRACE mg/dL (NEGATIVE) 01/04/18 07:25 Urine Blood LARGE (NEGATIVE) H 01/04/18 07:25 Urine Nitrate POSITIVE (NEGATIVE) H 01/04/18 07:25 Urine Bilirubin NEGATIVE (NEGATIVE) 01/04/18 07:25 Urine Urobilinogen 2.0 E.U./dL (0.2 - 1.0) 01/04/18 07:25 Ur Leukocyte Esterase TRACE (NEGATIVE) H 01/04/18 07:25 Urine RBC 50-100 /hpf (0-5) H 01/04/18 07:25 Urine WBC 2-5 /hpf (0-5) 01/04/18 07:25 Ur Epithelial Cells OCCASIONAL /lpf (FEW) 01/04/18 07:25 Urine Bacteria FEW /hpf (NONE SEEN) 01/04/18 07:25 Ur Oval Fat Bodies /hpf (NONE SEEN) 01/04/18 07:25 - Physical Exam Vitals and I&O: Vital Signs Temp 98.1 F 01/06/18 08:00 Pulse 78 01/06/18 08:00 Resp 18 01/06/18 08:00 BP 124/80 01/06/18 08:47 Pulse Ox 96 01/06/18 08:00 Intake & Output 01/05/18 01/06/18 01/06/18 18:59 06:59 18:59 Intake Total 2550 1000 Output Total 2600 Balance -50 1000 Weight (lbs) 300 lb Intake: Intake, IV Amount 1050 1000 Sodium Chloride 0.9% 1, 1000 1000 000 ml @ 100 mls/hr IV . Q10H [facility] Rx#:[id number] cefTRIAXone 1 gm In 50 Sodium Chloride 0.9% 50 ml @ 100 mls/hr IV Q24HR [facility] Rx#:[id number] Oral 1500 Output: Urine 2600 Other: # Bowel Movements 1 Stool Characteristics Soft Soft Brown Brown Weight Source Bedscale Active Medications: Current Medications Acetaminophen (Tylenol) 650 mg PO Q4H PRN PRN Reason: Breakthru Pain/Fever above 101 Stop: 03/05/18 13:22 Last Admin: 01/05/18 17:17 Dose: 650 mg Acetaminophen/Hydrocodone Bitart ([place] 5mg/325mg) 1 tab PO Q4H PRN PRN Reason: Pain (Mild) Stop: 03/05/18 13:22 Last Admin: 01/05/18 21:49 Dose: 1 tab Albuterol Sulfate (Albuterol 2.5mg/3ml Neb Ud) 2.5 mg HHN Q2HRT PRN PRN Reason: Shortness of Breath or Wheeze Stop: 03/05/18 13:22 Furosemide (Lasix) 20 mg PO DAILY [facility] Stop: 03/05/18 15:59 Last Admin: 01/06/18 08:47 Dose: 20 mg Hydromorphone HCl (Dilaudid) 1 mg IVP Q4H PRN PRN Reason: Pain (Severe) Stop: 03/05/18 09:44 Ceftriaxone Sodium 1 gm/ (Sodium Chloride) 50 mls @ 100 mls/hr IV Q24HR [facility] Stop: 03/06/18 08:59 Last Admin: 01/06/18 08:47 Dose: 100 mls/hr Sodium Chloride (Nacl 0.9%) 1,000 mls @ 100 mls/hr IV .Q10H [facility] Stop: 03/05/18 18:59 Last Admin: 01/06/18 08:49 Dose: 100 mls/hr Ondansetron HCl (Zofran) 4 mg IV Q8H PRN PRN Reason: Nausea / Vomiting Stop: 03/05/18 13:22 Tamsulosin HCl (Flomax) 0.4 mg PO DAILY [facility] Stop: 03/05/18 09:29 Last Admin: 01/06/18 08:47 Dose: 0.4 mg General: alert HEENT: NC/AT, PERRLA Neck: Supple Lungs: CTAB Internal Medicine Assmt/Plan - Assessment Assessment: acute uti with renal stone right flank pain-better - Plan Plan: encourage patient to ambulate cont with ivf dc planning in am repeat renal u/s today
--- NOTE | 2018-01-06 11:55 | Discharge Summary ---
DATE OF DISCHARGE: 01/06/2018 DISCHARGE DIAGNOSES: Acute urinary tract infection with renal stone, right flank pain which has resolved. HISTORY OF PRESENT ILLNESS: This is a 47-year-old male who has a 1-day history of right flank pain. According to the patient, he has been having right flank pain intermittently for about a week. The patient states a couple days ago, the patient started to have intermittent right flank pain associated with uncomfortable sensation when urinating. The patient denies any fevers at home. The patient states pain was worse yesterday. He describes the pain as on the right flank side radiating to the lower back. PHYSICAL EXAMINATION: GENERAL: The patient is well developed, well nourished, no apparent distress. VITAL SIGNS: Stable. HEENT: Normocephalic, atraumatic. NECK: Supple. No mass. LUNGS: Clear and rhythm. ABDOMEN: Soft, nontender. HOSPITAL COURSE: During the hospital stay, the patient was admitted to the med/surg unit. The patient had a CT of the abdomen and impression was 3-4 mm stone of the right distal ureter causing mild hydroureter and right hydronephrosis, mild surrounding inflammatory changes. Slight lobulation of the right ____ borders, probably related to scarring. No discrete mass is identified moderate to large fat containing right and moderate sized fat containing left inguinal hernia. The patient had a Urology consultation done. No surgical interventions were recommended. The patient was to continue with aggressive IV fluids for hydration on top of Lasix and the patient was encouraged to do ambulation as well. The patient was kept on empiric IV antibiotics as well. The patient's right side flank pain has resolved and for this reason, the patient is stable for discharge. CONDITION UPON DISCHARGE: Fair. DISPOSITION: Home. The patient was educated to follow up with PCP upon discharge. JOB# [id number]
--- NOTE | 2018-01-06 23:18 | Progress Notes ---
DATE: 01/06/2018 UROLOGY FOLLOWUP SUBJECTIVE: The patient was seen in the morning, having no pain for more than12 hours. Denies nausea, vomiting or dysuria and no fever. He was anxious to go home and was wondering if he could do another CT scan to check the status of the stone. He was advised that multiple CT scans can be detrimental due to significant radiation exposure and has not used generally to follow up with the stones. This is done mostly by clinical evaluation, presence or absence of pain, and sometimes ultrasound. This is especially applicable in small stones. PHYSICAL EXAMINATION: VITAL SIGNS: Temperature 98.1, heart rate 78, blood pressure 124/80. No fever in the last 24 hours. ABDOMEN: Soft. Right flank still mildly tender to percussion, but better than before. Abdomen unremarkable and nondistended. EXTREMITIES: No edema. HEART AND LUNG: Sounds are normal. LABORATORY DATA: White count 7.2, stable and hemoglobin 12.7. Chemistries are normal including electrolytes and creatinine down to 1.3. Urine culture was negative. Ultrasound of the abdomen or kidneys showed no evidence of hydronephrosis and otherwise unremarkable. IMPRESSION: Right ureteral stone about 4 mm may have passed, although I have seen ultrasound findings to be inaccurate or deceptive and the stone settles down in one place and does not make any movements. The patient has elected to go home and continue medical therapy and hopefully, will pass it if he has not already done so. He should see me or any urologist of his choice in a week to 2 weeks. At that time, clinical and imaging studies evaluation could be repeated. Meanwhile, he should go home on Flomax, hydration, and ambulation. [facility]# [id number]
== END 2018-01-06 12:50 | disposition home or self-care (01) | DRG 690 ==
LOC: ER 07:19 → MSI 12:10
PROVIDERS: ADMIT Internal Medicine; ATTEND Internal Medicine
DX: N13.6 Pyonephrosis (principal); R31.9 Hematuria, unspecified; K40.90 Unilateral inguinal hernia, without obstruction or gangrene, not specified as recurrent; F41.9 Anxiety disorder, unspecified
CPT/HCPCS: 36415-UA; 71045-TC; 76770-TC; 80053-TC; 80061-TC; 81001-TC; 82150-TC; 82550-TC; 83690-TC; 83880-TC; 84484-TC; 85025-TC; 85610-TC; 87086-90; 93005; 94760; 96375; 96376; J0696; J1170; J1885; J2270; J2405; J3480; J7030; Z7610